=== PATIENT | male | born 1970 | race African-American/Black ===

== ENCOUNTER 2024-02-02 12:01 | Inpatient (IN) | payer OTHER ==
[2024-02-02 12:28] VITALS: BMI 21.9
[2024-02-02] MEDS ORDERED: MAG HYDROX/AL HYDROX/SIMETH 30 ML UNIT-DOSE CUP PO PRN (13:46)
[2024-02-02] MEDS ORDERED: POLYETHYLENE GLYCOL (HEALTHYLAX) 3350 17 GM PACKET PO PRN (13:46)
[2024-02-02] MEDS ORDERED: NALOXONE HCL 0.4 MG/ML VIAL IM PRN (13:46)
[2024-02-02] MEDS ORDERED: ACETAMINOPHEN 325 MG TABLET (FP) PO PRN (13:46)
[2024-02-02] MEDS ORDERED: guaiFENesin 600 MG TABLET.ER (FP) PO PRN (13:46)
[2024-02-02] MEDS ORDERED: BENZOCAINE/MENTHOL (CHLORASEPTIC ) LOZENGE MM PRN (13:46)
[2024-02-02] MEDS ORDERED: MAGNESIUM HYDROX 2400MG/30ML ORAL SUSPENSION 30 ML CUP PO PRN (13:46)
[2024-02-02] MEDS ORDERED: BISMUTH SUBSALICYLATE 262 MG/15 ML BTL PO PRN (13:46)
[2024-02-02] MEDS ORDERED: BENZONATATE 200 MG CAPSULE PO PRN (13:46)
[2024-02-02] MEDS ORDERED: NALOXONE HCL (KLOXXADO) 8 MG SPRAY NS PRN (13:46)
[2024-02-02] MEDS ORDERED: LOPERAMIDE HCL 2 MG CAPSULE PO PRN (13:46)
[2024-02-02] MEDS ORDERED: ONDANSETRON *ODT* 4 MG TABLET SL PRN (13:46)
[2024-02-02] MEDS ORDERED: IBUPROFEN 400 MG TABLET (FP) PO PRN (13:46)
[2024-02-02] MEDS ORDERED: DICYCLOMINE HCL 10 MG CAPSULE PO PRN (13:46)
[2024-02-02] MEDS ORDERED: PRENATAL VITAMINS W/ FOLIC ACID TABLET (FP) PO ONE (14:47)
[2024-02-02] MEDS: PRENATAL VITAMINS W/ FOLIC ACID TABLET (FP) PO SCH (14:49)
[2024-02-02] MEDS: LOSARTAN POTASSIUM 50 MG TABLET PO SCH (15:00)
[2024-02-02] MEDS: BICTEGRAV/EMTRICIT/TENOFOV (BIKTARVY) 50-200-25 MG TABLET PO SCH (15:00)
[2024-02-02] MEDS: chlordiazePOXIDE HCL 25 MG CAPSULE PO PRN (16:59)
[2024-02-02] MEDS: cloNIDine HCL 0.1 MG TABLET PO PRN (19:22)
[2024-02-02] MEDS: chlordiazePOXIDE HCL 25 MG CAPSULE PO ONE (19:40)
[2024-02-02] MEDS: hydrOXYzine PAMOATE 25 MG CAPSULE (FP) PO PRN (20:46)
[2024-02-02] MEDS: METHOCARBAMOL 500 MG TABLET PO PRN (20:46)
[2024-02-02] MEDS ORDERED: LORazepam 2 MG/ML SDV VIAL IM ONE (21:17)
[2024-02-02] MEDS: METOPROLOL TARTRATE 25 MG TABLET (FP) PO ONE (21:30)
[2024-02-02] MEDS: THIAMINE 100 MG TABLET PO SCH (23:24)
[2024-02-02] MEDS: chlordiazePOXIDE HCL 25 MG CAPSULE PO SCH (23:24)
[2024-02-02] MEDS: MELATONIN 5 MG TABLETS PO SCH (23:27)
[2024-02-03 11:53] LABS: HEMATOCRIT 39.7 % (35.4-49); HEMOGLOBIN 13.3 GM/dL (11.7-16.9); MCH 31.6 pg (25.7-33.7); MCHC 33.6 g/dl (32.0-35.9); MEAN CELL VOLUME 94.1 fl (80-96); MEAN PLT VOLUME 7.9 fl (7.5-11.1); PLATELET COUNT 300 10^3/uL (134-434); RBC 4.22 M/mm3 (4.00-5.60); RDW 14.3 % (11.9-15.9); WHITE BLOOD COUNT 4.9 K/mm3 (4.0-10.0)
[2024-02-03 12:02] LABS: CHLORIDE 98 mmol/L (98-107); POTASSIUM 3.1 mmol/L (3.5-5.1); SODIUM 135 mmol/L (136-145)
[2024-02-03 12:09] LABS: SGPT/ALT 51 U/L (13-61)
[2024-02-03 12:14] LABS: ALBUMIN 2.8 g/dl (3.4-5.0); ANION GAP 3 mmol/L (4-13); BLOOD UREA NITROGEN 15.2 mg/dL (7-18); CALCIUM 9.1 mg/dL (8.5-10.1); CO2 34 mmol/L (21-32); GLUCOSE,RANDOM 85 mg/dL (74-106)
[2024-02-03 12:15] LABS: SGOT/AST 81 U/L (15-37); TOT PROT 6.6 g/dl (6.4-8.2)
[2024-02-03 12:16] LABS: ALK PHOS 116 U/L (45-117); BILIRUBIN,TOTAL 1.7 mg/dL (0.2-1)
[2024-02-03] MEDS: POTASSIUM CHLORIDE ORAL LIQUID 20 MEQ/15 ML PO ONE (14:14)
[2024-02-03] MEDS: POTASSIUM CHLORIDE ORAL LIQUID 20 MEQ/15 ML PO SCH (22:46)
[2024-02-04] MEDS: chlordiazePOXIDE HCL 25 MG CAPSULE PO SCH (05:39)
[2024-02-04] MEDS: IBUPROFEN 600 MG TABLET (FP) PO PRN (09:43)
[2024-02-05] MEDS: chlordiazePOXIDE HCL 10 MG CAPSULE PO SCH (05:28)
[2024-02-05] MEDS: LOSARTAN POTASSIUM 50 MG TABLET PO SCH (09:50)
[2024-02-05] MEDS: chlordiazePOXIDE HCL 10 MG CAPSULE PO PRN (20:54)
[2024-02-05] MEDS: cloNIDine HCL 0.1 MG TABLET PO ONE (23:21)
[2024-02-06] MEDS: chlordiazePOXIDE HCL 10 MG CAPSULE PO SCH (06:00)
[2024-02-06] MEDS: PENICILLIN G BENZATHINE 2,400,000 UNIT/4 ML PFS IM ONE (10:35)
[2024-02-07] MEDS: cloNIDine HCL 0.1 MG TABLET PO ONE (00:41)
[2024-02-07] MEDS: chlordiazePOXIDE HCL 10 MG CAPSULE PO ONE (05:50)
[2024-02-07 07:04] VITALS: RESP 16
[2024-02-07 08:51] VITALS: BP 166/95; PULSE 65; TEMP 96.9
== END 2024-02-07 10:15 | disposition home or self-care (01) | DRG 897 ==
LOC: YASAS 12:01 → Y6N 13:57
PROVIDERS: ADMIT Allergy & Immunology; ATTEND Surgery
PROC: HZ2ZZZZ Detoxification Services for Substance Abuse Treatment (ICD-10-PCS; principal; 2024-02-02)
DX: F10.230 Alcohol dependence with withdrawal, uncomplicated (principal); F12.20 Cannabis dependence, uncomplicated; F10.282 Alcohol dependence with alcohol-induced sleep disorder; F10.24 Alcohol dependence with alcohol-induced mood disorder; Z21 Asymptomatic human immunodeficiency virus [HIV] infection status; A53.9 Syphilis, unspecified; E87.6 Hypokalemia; I10 Essential (primary) hypertension; R76.11 Nonspecific reaction to tuberculin skin test without active tuberculosis; Z87.891 Personal history of nicotine dependence; Z79.899 Other long term (current) drug therapy
CPT/HCPCS: 36415; 71046-TC-FY; 73630-TC-LT; 80053; 80305; 80307; 84132; 85027; 86593; 86780; 93005; 93010